=== PATIENT | male | born 1980 | race Caucasian/White ===

== ENCOUNTER 2017-05-12 15:51 | Emergency (ER) | payer MEDICAID ==
[2017-05-12] MEDS ORDERED: THIAMINE HCL 100 MG, MVI, ADULT NO.1 WITH VIT K 10 ML, FOLIC ACID 5 MG in 0.9 % SODIUM ... IV ONE ×4 (17:00)
[2017-05-12 17:07] LABS: BASOPHILS % 1.3 (0.0-1.5); EOSINOPHILS % 0.8 % (0.0-6.8); MEAN CORPUSCULAR VOLUME 101.3 fl (80.0-100.0); MONOCYTES % 3.5 % (0.0-11.0); NEUTROPHILS # 5.4 # k/uL (1.4-7.7)
[2017-05-12] MEDS ORDERED: 0.9 % SODIUM CHLORIDE 1,000 ML IV ONE (17:17)
[2017-05-12] MEDS ORDERED: THIAMINE HCL 100 MG/ML 2ML VIAL ONE (17:18)
[2017-05-12] MEDS ORDERED: FOLIC ACID 5 MG/1 ML ONE (17:19)
[2017-05-12 17:20] LABS: eGFR (African) > 60; eGFR (Non-African) > 60
--- NOTE | 2017-05-12 18:05 | ED Physician Documentation ---
General Adult - HISTORIAN Historian: patient, paramedics - HPI Stated Complaint: alcohol intoxication Chief Complaint: General Adult Additional Information: pt on way to [facility] for adm for etoh rehab he had syncope before he got to the door. ems tnsf pt w/o co now thinks syncope due just to toko much etoh. much better w/ iv of lnacl and banana bag Onset: hours (1430) Timing: better Severity: mild, moderate Further Comments: yes (pt alert cooperative fails to reveal symptome except smell of etoh-drinks approx 1pt per day) - ROS CONST: no problems EYES/ENT: denies: problems with vision CVS/RESP: none. denies: shortness of breath, cough GI/: none. denies: abdominal pain, problems urinating MS/SKIN/LYMPH: none NEURO/PSYCH: dizziness (very slight remains supoine-vs stable) - PAST HX Past History: hypertension, other (alcoholism) Surgeries/Procedures: other (elbow) Allergies/Adverse Reactions: Allergies Allergy/AdvReac Type Severity Reaction Status Date / Time No Known Allergies Allergy Verified 05/12/17 17:11 Home Medications: Ambulatory Orders Medication Instructions Recorded NK [NK] 05/12/17 - SOCIAL HX Smoking History: greater than 1 pack/day Alcohol Use: heavy Drug Use: none - FAMILY HX Family History: No - VITAL SIGNS Vital Signs: Vital Signs Temp Pulse Resp BP Pulse Ox 99.6 F 119 H 20 155/86 93 05/12/17 15:51 05/12/17 15:51 05/12/17 15:51 05/12/17 15:51 05/12/17 15:51 - REVIEWED ASSESSMENTS Nursing Assessment Reviewed: Yes Vitals Reviewed: Yes ED Results Lab/Radiology - Lab Results Lab Results: Lab Results 05/12/17 05/12/17 16:55 16:55 WBC 7.40 K/ul K/ul (4.00-12.00) RBC 4.95 M/ul M/ul (3.90-5.20) Hgb 16.8 g/dL g/dL (12.0-18.0) Hct 50.1 % % (37.0-53.0) MCV 101.3 fl H fl (80.0-100.0) MCH 34.0 pg pg (28.0-34.0) MCHC 33.5 g/dL g/dL (30.0-36.0) RDW 14.6 % H % (11.3-14.3) Plt Count 284 K/mm3 K/mm3 (130-400) Neut % (Auto) 73.0 % % (39.0-79.0) Lymph % (Auto) 20.5 % % (16.0-50.0) Monroe % (Auto) 3.5 % % (0.0-11.0) Eos % (Auto) 0.8 % % (0.0-6.8) Baso % (Auto) 1.3 (0.0-1.5) Neut # (Auto) 5.4 # k/uL # k/uL (1.4-7.7) Lymph # (Auto) 1.5 # k/uL # k/uL (0.6-4.0) Monroe # (Auto) 0.3 # k/uL # k/uL (0.0-0.9) Eos # (Auto) 0.1 # k/uL # k/uL (0.0-0.6) Baso # (Auto) 0.1 # k/uL # k/uL (0.0-0.5) Reactive Lymphs % 0.9 % % (0.0-5.0) Reactive Lymphs # 0.1 # k/uL # k/uL (0.0-0.8) Sodium 140 mmol/L mmol/L (136-145) Potassium 3.6 mmol/L mmol/L (3.5-5.0) Chloride 99 mmol/L mmol/L (98-110) Carbon Dioxide 20 mmol/L mmol/L (20-32) BUN 9 mg/dL L mg/dL (10-26) Creatinine 0.9 mg/dL mg/dL (0.4-1.5) Estimated Creat Clear 163 Est GFR ( Amer) > 60 (60 - ) Est GFR (Non-Af Amer) > 60 (60 - ) Glucose 102 mg/dL H mg/dL (70-99) Calcium 8.8 mg/dL mg/dL (8.5-10.5) Total Bilirubin 0.4 mg/dL mg/dL (0.2-1.2) AST 60 U/L H U/L (0-41) ALT 94 U/L H U/L (0-45) Alkaline Phosphatase 68 U/L U/L (46-116) Total Protein 7.3 g/dL g/dL (6.0-8.5) Albumin 4.6 g/dL g/dL (3.0-5.5) Ethyl Alcohol 369.0 MG/DL H MG/DL (<10.0) - Orders Orders: ED Orders Category Date Time Status CBC/PLATELET/DIFF Routine Lab 05/12/17 16:55 Completed CMP Routine Lab 05/12/17 16:55 Completed ETHANOL MEDICAL USE ONLY Routine Lab 05/12/17 16:55 Completed 0.9 % Sodium Chloride [Normal Saline] 1,000 ml Med 05/12/17 17:17 Discontinued IV .STK-MED Folic Acid [Folvite] Med 05/12/17 17:19 Discontinued 5 mg .ROUTE .STK-MED ONE Thiamine HCl Med 05/12/17 17:18 Discontinued 200 mg .ROUTE .STK-MED ONE Thiamine HCl 100 mg Med 05/12/17 17:00 Active Mvi, Adult No.1 with Vit K [M.v.i. Adult] 10 ml Folic Acid [Folvite] 5 mg 0.9 % Sodium Chloride [Normal Saline] 1,000 ml IV NOW General Adult Physical Exam - PHYSICAL EXAM GENERAL APPEARANCE: mild distress EENT: eye inspection normal NECK: normal inspection, thyroid normal, supple RESPIRATORY: no resp distress, chest non-tender, breath sounds normal CVS: reg rate & rhythm, heart sounds normal ABDOMEN: soft, non-tender BACK: normal inspection SKIN: warm/dry, normal color. No: cyanosis, diaphoresis, jaundice EXTREMITIES: non-tender, normal range of motion, no evidence of injury NEURO: oriented X3, motor nml, sensation nml, mood/affect nml, cognition normal. No: disoriented, speech/cognition abnml Discharge Clincal Impression: ethanol intoxication w/syncope, livere failure Referrals: Primary Doctor,No [Primary Care Provider] - 2 Days Home Medications: Ambulatory Orders NK [NK] 05/12/17 Condition: Fair Disposition: 01 HOME, SELF-CARE Decision to Admit: NO Decision Time: 21:26
[2017-05-12 22:20] VITALS: BP 112/74
== END 2017-05-12 21:30 | disposition home or self-care (01) ==
LOC: ED 15:51
DX: R55 Syncope and collapse (principal); K72.90 Hepatic failure, unspecified without coma; F10.129 Alcohol abuse with intoxication, unspecified
CPT/HCPCS: 80053; 80320; 85025; J3411; J3490; J7030; 96365; 99283; G0480